=== PATIENT | female | born 1970 | race Caucasian/White ===

== ENCOUNTER 2020-02-29 05:15 | Day surgery (SDC) | payer BC ==
[2020-02-29] MEDS ORDERED: LIDOCAINE 1% 10 ML VIAL INJ ONE (05:16)
[2020-02-29] MEDS ORDERED: PROPOFOL 200 MG/20 ML VIAL IV ONE (05:16)
[2020-02-29] MEDS ORDERED: LACTATED RINGERS 1,000 ML ONE (06:42)
--- NOTE | 2020-02-29 11:19 | OP ---
DATE OF PROCEDURE: 02/29/20 PREOPERATIVE DIAGNOSIS: 1. Screening colonoscopy. POSTOPERATIVE DIAGNOSIS: 1. Single colonic polyp at distal ascending colon, 1.5 mm. PROCEDURE: 1. Colonoscopy. SURGEON: Geraldo Gomez MD ANESTHESIA: General. FINDINGS: As described. PROCEDURE: General anesthesia was induced in the lateral position. Digital rectal exam was normal. She did have one external hemorrhoid, non-thrombosed. The scope was inserted and passed with minimal difficulty. A little irrigation was necessary, but otherwise an adequate prep. The cecum was identified. Upon withdrawal, a single small polyp was seen on a fold. It was about 1.5 mm and completely excised right proximal to the hepatic flexure. The remainder of the exam was normal with no mucosal abnormalities and no additional polyps seen. Small hemorrhoids. The patient tolerated the procedure and was taken to Recovery to be discharged. #[id number] cc: GEOVANNA Gupta
[2020-02-29 12:23] VITALS: BP 111/65; TEMP 98; O2SAT 100
== END 2020-02-29 12:00 | disposition home or self-care (01) ==
LOC: AMB 05:15
PROVIDERS: ATTEND Surgery
DX: Z12.11 Encounter for screening for malignant neoplasm of colon (principal); D12.2 Benign neoplasm of ascending colon; K64.4 Residual hemorrhoidal skin tags; K21.9 Gastro-esophageal reflux disease without esophagitis; E66.9 Obesity, unspecified; Z88.0 Allergy status to penicillin; Z90.710 Acquired absence of both cervix and uterus; Z68.35 Body mass index [BMI] 35.0-35.9, adult
CPT/HCPCS: 00812; 45380; J3490; J7120